=== PATIENT | female | born 1950 | race Caucasian/White ===

== ENCOUNTER → 2019-01-10 | Outpatient (CLI) | payer MEDICARE, MEDICAID ==
[~2019-01-10] MED LIST: APIX5TAB PO; DIGO250T PO; LISI-170 PO; OMNIPAQUE 350 MG/ML, 150 ML BOTTLE ONE; SPIR25TA5 PO; metoprolol PO
== END | disposition home or self-care (01) ==
LOC: CFH 09:28
PROVIDERS: ATTEND Internal Medicine Cardiovascular Disease
DX: Z01.810 Encounter for preprocedural cardiovascular examination (principal); I48.91 Unspecified atrial fibrillation; I10 Essential (primary) hypertension
CPT/HCPCS: 71046; 75572; Q9967

== ENCOUNTER → 2019-01-10 | Outpatient (CLI) | payer MEDICARE, MEDICAID ==
[~2019-01-10] MED LIST changes: -OMNIPAQUE 350 MG/ML, 150 ML BOTTLE ONE
[2019-01-10 12:25] LABS: BASOPHILS # (AUTO) 0.02 x10^3/uL (0-0.1); BASOPHILS % (AUTO) 0 % (0-1); EOSINOPHILS # (AUTO) 0.11 x10^3/uL (0-0.4); EOSINOPHILS % (AUTO) 2 % (1-7); LYMPHOCYTES # (AUTO) 1.79 x10^3/uL (1-3.4); LYMPHOCYTES % (AUTO) 24 % (22-44); MD NO; MEAN CORPUSCULAR HEMOGLOBIN 28.6 pg (27.0-34.8); MEAN CORPUSCULAR HGB CONC 32.3 g/dL (32.4-35.8); MEAN CORPUSCULAR VOLUME 88.6 fL (80-100); MONOCYTES # (AUTO) 0.46 x10^3/uL (0.2-0.8); MONOCYTES % (AUTO) 6 % (2-9); NEUTROPHILS # (AUTO) 5.17 x10^3/uL (1.8-6.8); NEUTROPHILS % (AUTO) 68 % (42-75); PLATELET COUNT 262 x10^3/uL (130-400); RED BLOOD COUNT 4.57 x10^6/uL (3.82-5.3); RED CELL DISTRIBUTION WIDTH 18.1 % (9.6-15.2)
[2019-01-10 12:38] LABS: CHLORIDE 107 mmol/L (98-107)
[2019-01-10 12:55] LABS: ALANINE AMINOTRANSFERASE 24 U/L (12-78); ALBUMIN 3.6 g/dL (3.4-5.0); ALKALINE PHOSPHATASE 97 U/L (45-117); ANION GAP 6 mmol/L (5-15); BILIRUBIN,TOTAL 0.6 mg/dL (0.2-1.0); CALCIUM 8.5 mg/dL (8.5-10.1); TOTAL PROTEIN 7.3 g/dL (6.4-8.2)
== END | disposition home or self-care (01) ==
LOC: STAR 10:42
PROVIDERS: ATTEND Internal Medicine Cardiovascular Disease
DX: I48.19 Other persistent atrial fibrillation (principal)
CPT/HCPCS: 36415; 80053; 85025

== ENCOUNTER 2019-03-12 06:23 | Inpatient (IN) | payer MEDICARE, MEDICAID ==
[~2019-03-12] VITALS: Ht 172.7 cm; Wt 73.7 kg
[2019-03-12] MEDS ORDERED: SODIUM CHLORIDE 0.9% 1,000 ML IV SCH ×2 (06:42→07:00)
[2019-03-12] MEDS ORDERED: LIDOCAINE 1%, 20ML ONE ×2 (06:43→06:44)
[2019-03-12] MEDS ORDERED: METO50TA82 PO (07:01)
[2019-03-12] MEDS ORDERED: METO25TA35 PO (07:01)
[2019-03-12] MEDS ORDERED: LIDOCAINE 2%, 20ML ONE (07:20)
[2019-03-12] MEDS ORDERED: FENTANYL PF 250 MCG/5ML ONE (07:45)
[2019-03-12] MEDS ORDERED: PROPOFOL 50 ML ONE (07:45)
[2019-03-12] MEDS ORDERED: MIDAZOLAM 1 MG/ML, 2ML ONE (07:45)
[2019-03-12] MEDS ORDERED: SUCCINYLCHOLINE 20 MG/ML, 10ML ONE (08:03)
[2019-03-12] MEDS ORDERED: DEXAMETHASONE 4 MG/ML, 1ML ONE (08:03)
[2019-03-12] MEDS ORDERED: ONDANSETRON 2MG/ML, 2ML ONE (08:03)
[2019-03-12] MEDS ORDERED: ROCURONIUM 10MG/ML,5ML ONE (10:02)
[2019-03-12] MEDS ORDERED: HEPARIN 1,000 UNITS/ML, 10ML ONE (10:02)
[2019-03-12] MEDS ORDERED: ONDANSETRON ODT 8 MG PO PRN (11:30)
[2019-03-12] MEDS ORDERED: OXYcodone 5 MG/5 ML ORAL.SOL UDC PO PRN (11:30)
[2019-03-12] MEDS ORDERED: MIDAZOLAM 1 MG/ML, 2ML IV PRN (11:30)
[2019-03-12] MEDS ORDERED: DIPHENHYDRAMINE 50 MG/ML, 1ML IVPush PRN (11:30)
[2019-03-12] MEDS ORDERED: ONDANSETRON 2MG/ML, 2ML IV PRN (11:30)
[2019-03-12] MEDS ORDERED: FENTANYL PF 100 MCG/2ML IV PRN (11:30)
[2019-03-12] MEDS ORDERED: ACETAMINOPHEN 325 MG TABLET PO PRN (11:30)
[2019-03-12] MEDS ORDERED: HYDROmorphone 2 MG/ML, 1ML IVPush PRN (11:30)
[2019-03-12] MEDS ORDERED: PROMETHAZINE 25 MG/ML, 1ML IV PRN (11:30)
[2019-03-12] MEDS ORDERED: MEPERIDINE/PF 25MG/ML,1ML IVPush PRN (11:30)
[2019-03-12] MEDS ORDERED: DIAZEPAM 5 MG/ML, 2ML IVPush PRN (11:30)
[2019-03-12] MEDS ORDERED: EPHEDRINE 50 MG/ML, 1ML IVPush PRN (11:30)
[2019-03-12] MEDS ORDERED: EPHEDRINE 50 MG/ML, 1ML IM PRN (11:30)
[2019-03-12] MEDS ORDERED: APIXABAN 5 MG TABLET ONE (12:42)
[2019-03-12 13:45] VITALS: BP 119/73
[2019-03-12] MEDS: SOTALOL 80MG TABLET PO SCH (18:00)
[2019-03-12 19:08] VITALS: BP 95/52
[2019-03-12] MEDS ORDERED: DIPHENHYDRAMINE 25 MG CAPSULE ONE (20:08)
[2019-03-12] MEDS: APIXABAN 5 MG TABLET PO SCH (20:13)
[2019-03-12] MEDS ORDERED: DIPHENHYDRAMINE 25 MG CAPSULE PO PRN (20:30)
[2019-03-12] MEDS ORDERED: METOPROLOL TARTRATE 25 MG TABLET PO SCH (21:00)
[2019-03-12] MEDS ORDERED: APIXABAN 5 MG TABLET PO SCH ×2 (21:00)
[2019-03-13 01:27] VITALS: BP 97/64
[2019-03-13] MEDS: SOTALOL 80MG TABLET PO SCH ×2 (05:50→18:44)
[2019-03-13 05:52] VITALS: BP 110/77
[2019-03-13] MEDS: SPIRONOLACTONE 25 MG TABLET PO SCH (08:29)
[2019-03-13] MEDS: LISINOPRIL 10 MG TABLET PO SCH (08:29)
[2019-03-13] MEDS: APIXABAN 5 MG TABLET PO SCH ×2 (08:30→20:07)
[2019-03-13] MEDS: DIGOXIN 0.25 MG TABLET PO SCH (08:31)
[2019-03-13 09:50] VITALS: BP 107/74
[2019-03-13 13:40] VITALS: BP 118/76
[2019-03-13 18:45] VITALS: BP 143/84
[2019-03-13 18:55] VITALS: BP 147/90
[2019-03-14 01:25] VITALS: BP 144/90
[2019-03-14] MEDS ORDERED: FLU VACC QS2019-20 36MOS UP/PF 0.5 ML IM-VACC ONE (02:00)
[2019-03-14] MEDS: SOTALOL 80MG TABLET PO SCH (05:44)
[2019-03-14 07:40] VITALS: BP 143/93
[2019-03-14] MEDS ORDERED: KETOROLAC 30 MG/1 ML IM ONE (09:00)
[2019-03-14] MEDS ORDERED: LISI-170 PO (09:19)
[2019-03-14] MEDS ORDERED: SOTA80TA18 PO (09:19)
[2019-03-14 09:39] VITALS: BP 128/82
[2019-03-14] MEDS: SPIRONOLACTONE 25 MG TABLET PO SCH (09:47)
[2019-03-14] MEDS: DIGOXIN 0.25 MG TABLET PO SCH (09:47)
[2019-03-14] MEDS: APIXABAN 5 MG TABLET PO SCH (09:47)
[2019-03-14] MEDS: LISINOPRIL 10 MG TABLET PO SCH (09:48)
[2019-03-14] MEDS ORDERED: KETOROLAC 30 MG/1 ML IVPush SCH ×2 (11:00)
== END 2019-03-14 11:43 | disposition home or self-care (01) | DRG 273 ==
LOC: CACL 06:23 → 5SO 12:38 → DCLOUNGE 03-14 11:19
PROVIDERS: ADMIT Internal Medicine Cardiovascular Disease; ATTEND Internal Medicine Cardiovascular Disease
PROC: 4A023FZ Measurement of Cardiac Rhythm, Percutaneous Approach (ICD-10-PCS; 2019-03-12)
PROC: 4A0234Z Measurement of Cardiac Electrical Activity, Percutaneous Approach (ICD-10-PCS; 2019-03-12)
PROC: 02K83ZZ Map Conduction Mechanism, Percutaneous Approach (ICD-10-PCS; 2019-03-12)
PROC: 03HY32Z Insertion of Monitoring Device into Upper Artery, Percutaneous Approach (ICD-10-PCS; 2019-03-12)
PROC: 02583ZZ Destruction of Conduction Mechanism, Percutaneous Approach (ICD-10-PCS; principal; 2019-03-12 08:00)
DX: I48.0 Paroxysmal atrial fibrillation (principal); I50.33 Acute on chronic diastolic (congestive) heart failure; D68.69 Other thrombophilia; I31.9 Disease of pericardium, unspecified; I97.89 Other postprocedural complications and disorders of the circulatory system, not elsewhere classified; Z88.6 Allergy status to analgesic agent; F41.9 Anxiety disorder, unspecified; I27.20 Pulmonary hypertension, unspecified; Z87.891 Personal history of nicotine dependence; Y83.8 Other surgical procedures as the cause of abnormal reaction of the patient, or of later complication, without mention of misadventure at the time of the procedure; Y92.239 Unspecified place in hospital as the place of occurrence of the external cause; I11.0 Hypertensive heart disease with heart failure
CPT/HCPCS: 85347; 90686; 93005; 93308; 93312; 93321; 93325; 93613; 93656; 93657; 93662; C1732; C1766; C1893; C1894; G0378; J1100; J1644; J1885; J2250; J2405; J2704; J3010; C1730; C1759; J0330; Q0163